=== PATIENT | male | born 1995 | race African-American/Black ===

== ENCOUNTER 2018-04-07 20:51 | Emergency (ER) | payer MEDICAID ==
[~2018-04-07] VITALS: Ht 182.9 cm; Wt 77.0 kg
[~2018-04-07 20:51] MED LIST: AMOX-424 PO; SULF-165 PO
[2018-04-07 22:08] VITALS: BP 119/59
== END 2018-04-08 00:13 | disposition left against medical advice (07) ==
LOC: ER 20:51
DX: Z53.21 Procedure and treatment not carried out due to patient leaving prior to being seen by health care provider (principal)

== ENCOUNTER 2018-10-20 13:43 | Emergency (ER) | payer MEDICAID ==
[~2018-10-20] VITALS: Ht 182.9 cm; Wt 82.0 kg
[2018-10-20] MEDS ORDERED: IBUPROFEN 600MG TABLET PO ONE (16:00)
[2018-10-20] MEDS ORDERED: BACITRACIN ZINC OINT UDPKT TOP ONE (16:00)
[2018-10-20] MEDS ORDERED: LIDOCAINE HCL/PF 1% 10 MG/ML 5ML VIAL IJ ONE (16:00)
[2018-10-20 16:20] VITALS: BP 116/66
== END 2018-10-20 17:21 | disposition home or self-care (01) ==
LOC: ER 13:43
DX: L02.214 Cutaneous abscess of groin (principal); F12.10 Cannabis abuse, uncomplicated
CPT/HCPCS: 10060; 99283; A4217; J3490; Z7610